=== PATIENT | female | born 1970 | race Two or more races ===

== ENCOUNTER 2019-08-31 08:54 | Day surgery (SDC) | payer OTHER ==
[2019-08-31] VITALS (10 sets, daily range): BP systolic 88–105; BP diastolic 53–67
[~2019-08-31] VITALS: Ht 182.9 cm; Wt 90.7 kg
[~2019-08-31 08:54] MED LIST: CALCIUM500 M3 PO; FISH OIL CAP1000 MG ORAL; MELATONIN1 MG PO; MINIPRESS1 MG PO; MULTIVITAMINS1 EAC2 ORAL; VITAMIN D32400 UNIT/ MC; ZYRTEC10 MG ORAL
--- NOTE | 2019-08-31 08:59 | Short Stay Surgery H&P ---
History of Present Illness History of Present Illness Chief Complaint abdominal pains/rectal bleeding/heartburn and history of upper GI bleed/ hematemesis HPI Zhanna Ovalle is a 49 year old female who was admitted on for Abdominal Pain , Gerd/rectal bleeding and vomiting blood in the past. Patient History Past Surgeries: (1) History of tympanoplasty (2) Personal history of malignant neoplasm of cervix uteri (3) History of tonsillectomy Medication History Scheduled Calcium Carbonate (Calcium), 500 MG PO DAILY, (Reported) Cetirizine Hcl* (Zyrtec*), 10 MG ORAL DAILY, (Reported) Fish Oil (Fish Oil 1,000 mg Capsule), 1,000 MG ORAL DAILY, (Reported) Melatonin (Melatonin), 1 MG PO HS, (Reported) Multivitamins* (Multivitamins*), 1 TAB ORAL DAILY, (Reported) Miscellaneous Medications Cholecalciferol (Vitamin D3) (Vitamin D3), 2,000 UNIT MC, (Reported) Prazosin Hcl* (Minipress*), 1 MG PO, (Reported) Review of Systems Cardiovascular: Reports: no symptoms Respiratory: Reports: no symptoms Skeletal: Reports: trauma Gastrointestinal: Reports: gastro esophageal reflux disease Genitourinary: Reports: no symptoms Neurologic: Reports: no symptoms Endocrine: Reports: no symptoms Hematologic: Reports: no symptoms Physical Exam Skin: normal HENT: normal Heart: normal Lungs: normal Abdomen: abnormal Extremities: normal Genitourinary: normal Plan Plan of Care Upper and lower Gi endoscopy and biopsy Preop Interventions None Summary of Findings See the final report Attestation Are the patient's medical conditions optimized for surgery? Attestation Response: yes Jim Harris MD Aug 31, 2019 08:59
[2019-08-31] MEDS ORDERED: fentaNYL 100 mcg/2 mL IV ONE (09:00)
[2019-08-31] MEDS ORDERED: LR 1000ml ONE (09:00)
[2019-08-31] MEDS ORDERED: Midazolam 2mg/2ml Inj ONE (09:00)
--- NOTE | 2019-08-31 09:00 | Pre-Procedure Note/Attestation ---
Pre-Procedure Note/Attestation Complete Prior to Procedure Planned Procedure: left Procedure Narrative: Examination of the upper and the lower GI tract via endoscopy and obtaining biopsies if needed. 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 I attest that, if there was a reasonable possibility of needing a blood transfusion, the patient (or the patient's legal sales representative groceries) was given the [place] [employer] [facility] standardized written summary, pursuant to the Marquis Calvin Blood Safety Act ([place] Health and Safety Code # 1645, as amended). I attest that I re-evaluated the patient just prior to the surgery and that there has been no change in the patient's H&P, except as documented below: Jim Harris MD Aug 31, 2019 09:00
--- NOTE | 2019-08-31 09:38 | Anethesia Preoperative Eval ---
Anesthesia Pre-op PMH/ROS General Date of Evaluation: Aug 31, 2019 Time of Evaluation: 09:10 Anesthesiologist: Dania ASA Score: ASA 2 Mallampati Score Class I : Soft palate, uvula, fauces, pillars visible Class II: Soft palate, uvula, fauces visible Class III: Soft palate, base of uvula visible Class IV: Only hard plate visible Mallampati Classification: Class II Surgeon: Balaji Diagnosis: Abdominal pain Surgical Procedure: EGD Colonoscopy Anesthesia History: none Family History: no anesthesia problems Allergies: Coded Allergies: No Known Allergies (Unverified , 08/31/19) Medications: see eMAR Patient NPO?: Yes Past Medical History Cardiovascular: Reports: HTN - mild Pulmonary: Denies: asthma, COPD, JESSICA, other Gastrointestinal/Genitourinary: Reports: GERD; Denies: CRI, ESRD, other Neurologic/Psychiatric: Reports: depression/anxiety; Denies: dementia, CVA, TIA, other Endocrine: Denies: DM, hypothyroidism, steroids, other HEENT: Denies: cataract (L), cataract (R), glaucoma, YOCHA DEHE (L), YOCHA DEHE (R), other Hematology/Immune: Denies: anemia, DVT, bleeding disorder, other Musculoskeletal/Integumentary: Reports: OA; Denies: RA, DJD, DDD, edema, other PMH Narrative: as above PSxH Narrative: T&A Anesthesia Pre-op Phys. Exam Physician Exam Last Vital Signs Date Time Temp Pulse Resp B/P (MAP) Pulse Ox O2 Delivery O2 Flow Rate FiO2 08/31/19 09:13 Room Air 08/31/19 09:09 96.9 73 18 105/67 96 Constitutional: NAD Neurologic: CN 2-12 intact Cardiovascular: RRR, no M/R/G Respiratory: CTA Gastrointestinal: S/NT/ND Airway Exam Mallampati Score: Class II MO: full Neck: flexible ROM: full Teeth: intact Dentures: no upper, no lower Branden Najera MD Aug 31, 2019 09:38
[2019-08-31] MEDS ORDERED: LR 1000ml 1,000 ML IVLG SCH (09:39)
[2019-08-31] MEDS ORDERED: fentaNYL 100 mcg/2 mL IV PRN (09:45)
--- NOTE | 2019-08-31 09:51 | Immediate Post-Op Evaluation ---
Immediate Post-Op Evalulation Immediate Post-Op Evalulation Procedure: EGD Colonoscopy Date of Evaluation: Aug 31, 2019 Time of Evaluation: 09:51 IV Fluids: 600 Blood Products: none Estimated Blood Loss: none Urinary Output: none Blood Pressure Systolic: 98 Blood Pressure Diastolic: 56 Pulse Rate: 64 Respiratory Rate: 20 O2 Sat by Pulse Oximetry: 99 Temperature (Fahrenheit): 97.8 Pain Score (1-10): 1 Nausea: No Vomiting: No Complications none Patient Status: awake, patent, none Hydration Status: adequate Branden Najera MD Aug 31, 2019 09:51
--- NOTE | 2019-08-31 09:55 | Discharge Instructions ---
Discharge Instructions Discharge Instructions Follow up with: Doctor will send the final printed report by mail For Congestive Heart Failure Reminder Report to your physician any weight gain of 5 pounds or more in one week. Jim Harris MD Aug 31, 2019 09:54
--- NOTE | 2019-08-31 12:45 | Operative Note - Dictated ---
DATE OF OPERATION: 08/31/2019 SURGEON: Jim Harris MD. PROCEDURE: Esophagogastroduodenoscopy with biopsy. PREOPERATIVE DIAGNOSIS: Abdominal pain, dysphagia with a history of vomiting blood, rule out peptic ulcer disease, esophagitis, gastritis. POSTOPERATIVE DIAGNOSIS: Mild/moderate generalized gastritis, otherwise normal upper GI endoscopy. MEDICATION USED: Per Dr. Najera, anesthesiologist. INSTRUMENT: GIF Olympus upper GI video endoscope. DESCRIPTION OF PROCEDURE: The patient after arriving an endoscopy unit, was told about risks and benefits of the procedure, which she accepted and signed the informed consent. She was then put on the left lateral decubitus position. After adequate IV sedation, the scope was gently passed through the cricopharyngeal area, was lodged into the upper esophagus and gradually advanced towards gastroesophageal junction. The entire length of esophagus looked normal and there was no pathology such as ulcers, tumors, polyps, stricture, etc. GE junction also looked normal. At this time, the scope was advanced into the stomach, gastric cavity was distended and gradually the areas of the fundus and the body and the antrum were examined. Gastric folds revealed evidence of mild/moderate inflammatory process presenting with erythema and mild edema of the gastric folds, but there were no ulcers, tumors, polyps, etc. A retroflexion maneuver was also applied and the area of the gastroesophageal junction was examined in a closer fashion, which revealed normal. At this point, one random biopsy from the gastric body was obtained and subsequently scope was passed through the antrum and pylorus. First and second portion of duodenum were examined and no other abnormalities found and they were within normal limits. Finally, the scope was pulled out and the procedure was terminated. The patient tolerated the procedure well. Jim Harris M.D. DR: PATRIC JOB#: [id number] CC:
--- NOTE | 2019-08-31 12:45 | Pre-op HX & Phy Repo 2 SIG ---
DATE OF ADMISSION: 08/31/2019 HISTORY OF PRESENT ILLNESS: The patient is a 49-year-old female who is being seen prior to undergoing the procedure of upper and lower GI endoscopic examination that had been authorized by the insurance company for her to receive for evaluation of her gastrointestinal conditions that she has suffered subsequent to work injury. The applicant was also evaluated by me a couple of days ago in the office and currently now I am examining her for clearing her up for the procedures of endoscopic examinations as reported above. 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 During this process, she had bodily injuries along with the psychological environmental pressures that caused her to develop GI symptoms that she is currently complaining. At this time, she tells me that she does have history of heartburn which is mostly bothering her on a daily basis and also she experiences pain over the epigastric as well as lower abdominal area. She reports that these pains are quite severe at times. She also does have history of nausea and occasional vomiting and she has had a couple of occasions of vomiting bright red blood as she also has had history of black dark stool consistent with melena, but she does not remember the dates. She complains also having dysphagia for solids and liquids at times. She also reported that her appetite is normal and she has gained significant amount of weight subsequent to her work injury. The patient also does have history of chronic diarrhea and constipation periodically. As I mentioned, she also does complain of having periodic rectal bleeding. She, however, tells me that she never had any endoscopic examination or other studies in terms of GI condition that she has been complaining of. She tells me that she never been diagnosed to have gastritis, etc. PAST MEDICAL HISTORY: Basically nonsignificant. She denies having high blood pressure, cholesterol, diabetes, etc. There is no history of arthritis. PAST SURGICAL HISTORY: The patient has had history of tonsillectomy and also tympanoplasty. She also has had history of uterine cervical operation for the cervical CA. She also has had history of removal of wisdom tooth years ago. ALLERGIES: Nonsignificant. CHILDHOOD DISEASE: Nonsignificant except chickenpox. FAMILY HISTORY: Shows that mother has had history of muscular dystrophy. Otherwise, the rest of the family is normal and she is single, has no children. MEDICATIONS: Current medications is multivitamins, Zyrtec, glucosamine, melatonin, and prazosin. HABITS: The applicant occasionally very rarely drinks alcohol, but smokes 6 to 8 cigarettes on a daily basis for many years. Does not use illicit drugs. REVIEW OF SYSTEMS: HEENT: The applicant complains of some headaches and dizziness and occasional visual problems. RESPIRATORY: She has history of cough, but no asthma. CARDIOVASCULAR: She complains of nonspecific chest pain and also palpitations, but no angina. ENDOCRINE: Nonsignificant. NEUROLOGICAL: She complains of some tingling sensations over the upper and lower extremities along with some weakness in those areas. MUSCULOSKELETAL: She also complains of experiencing pain over the knees and shoulders and the lower back and neck. PSYCHOLOGICAL: The patient does complain of some anxiety and stress that she has suffered subsequent to her work injury and work environments status. PHYSICAL EXAMINATION: GENERAL: At this time reveals alert, well-oriented very pleasant female, who does not seem to be in any acute distress. She looks well developed and nourished and obese. VITAL SIGNS: Blood pressure is 105/67, temperature 96.4, heart rate 73, oxygen saturation 96%, respiratory rate 16 per minute. HEENT: Normocephalic. Pupils are equal in size and reactive to light and accommodation. No visible jaundice. Buccal cavity, tongue midline, well hydrated. No ulcers. NECK: Supple. No JVD, thyromegaly, or adenopathy. CHEST: Clear to auscultation and percussion. HEART: S1, S2 normal. Regular rhythm. No gallops or murmur. ABDOMEN: Soft, but obese. There are areas of tenderness all over the abdomen, but no organomegaly or mass noted. EXTREMITIES: Unremarkable. No pretibial edema, cyanosis, or clubbing. CENTRAL NERVOUS SYSTEM: Within normal limits. INITIAL PREOPERATIVE DIAGNOSES: 1. Abdominal pain of uncertain etiology consistent with possibly gastroesophageal acid reflux, rule out peptic ulcer disease, gastritis, duodenitis, esophagitis. 2. History of rectal bleeding of uncertain etiology, possibly secondary to hemorrhoids versus colitis, polyps, tumors. 3. History of vomiting blood of uncertain etiology, rule out peptic ulcer disease. RECOMMENDATIONS: The applicant seems to be quite stable at this time to undergo the procedure of upper and lower GI endoscopy. I examined her prior to undergoing the procedure of the endoscopic examination that she is scheduled for. She understands the risks and benefits and will sign the consent. Said Johnny Harris DR: LEOLA JOB#: [id number] CC:
--- NOTE | 2019-08-31 13:30 | Operative Note - Dictated ---
DATE OF OPERATION: 08/31/2019 SURGEON: Jim Harris MD PROCEDURE: Total colonoscopy. PREOPERATIVE DIAGNOSIS: Abdominal pain, history of rectal bleeding, rule out colitis,tumors,polyps of the colon. POSTOPERATIVE DIAGNOSIS: Internal hemorrhoids, otherwise normal total colonoscopy. MEDICATION USED: Per Dr. Najera, anesthesiologist. INSTRUMENT: GIF Olympus video colonoscope. DESCRIPTION OF PROCEDURE: The patient after arriving in the endoscopy unit, was told about risks and benefits of the procedure, which she accepted and signed informed consent. She was then put on the left lateral decubitus position. After adequate IV sedation, the scope was gently passed through the anal area and a retroflexion maneuver which was applied here revealed evidence of internal hemorrhoids, but they were not friable and nonbleeding. The rest of the rectum looked normal. At this time, the scope was passed through the rectosigmoid angle and introduced into the descending colon all the way to the splenic flexure, which revealed completely normal finding. Finally, the scope was passed through the transverse colon, hepatic flexure, and guided into the right ascending colon all the way to the base of the cecum as the appendiceal opening was also visualized. All these areas remained to be completely normal and no evidence of polyps, tumors, inflammatory process, ulceration, stricture, etc. was found. The colon cleanup was adequate and at this point reaching to the base of the cecum within six minutes, the scope was gradually pulled out and re-evaluation of the colon did not reveal any other pathologies. The patient tolerated the procedure well and left the endoscopy room in a good condition. Jim Harris M.D. DR: LEOLA JOB#: [id number] CC:
--- NOTE | 2019-09-03 16:06 | Endoscopy Procedure Note ---
Endoscopy Procedure Note General Indication for Procedure: Abdominal pains, rectal bleeding, GERDs Procedures Performed: EGD - Mild gastritis, otherwise normal Upper UGIE, biopsy was taken from gastric body., colonoscopy - Minimal internal hemorrhoids otherwise completely total normal colonoscopy Specimen: yes Pt Tolerated Procedure Well: Yes Estimated Blood Loss: none Anesthesia Anesthesiologist: Ewelina Anesthesia: moderate sedation Medications Medication Given: see anesthesia record Inserted Devices Implant(s) used?: No Quality Quality of Bowel Preparation: Excellent Did scope reach the cecum?: Yes Was there any complications?: No GI Core Measures 50 yrs or older w/o bx or poly: Yes 10yrs. F/U recommended: Yes Med reason:<3 yrs.: System Reason:<3 yrs.: Jim Harris MD Sep 03, 2019 16:06
== END 2019-08-31 11:15 | disposition home or self-care (01) ==
LOC: GAS 08:54
DX: K64.8 Other hemorrhoids (principal); R07.9 Chest pain, unspecified; R00.2 Palpitations; E66.9 Obesity, unspecified; K29.70 Gastritis, unspecified, without bleeding; I10 Essential (primary) hypertension; K21.9 Gastro-esophageal reflux disease without esophagitis; F32.9 Major depressive disorder, single episode, unspecified; F41.9 Anxiety disorder, unspecified; M19.90 Unspecified osteoarthritis, unspecified site; Z85.41 Personal history of malignant neoplasm of cervix uteri; Z79.899 Other long term (current) drug therapy
CPT/HCPCS: 43239; 45378; 94003; J2250; J2704; J3010; J7120; 94150